=== PATIENT | male | born 1965 | race Caucasian/White ===

== ENCOUNTER 2020-04-30 14:28 | Emergency (ER) | payer OTHER ==
[~2020-04-30 14:28] MED LIST: Sodium Chloride 0.9% 1,000 ML BAG ONE
[2020-04-30 15:31] LABS: #Eosinphils 0.1 thou/uL (0.0-0.7); #Lymphocytes 0.7 thou/uL (1.20-3.40); #Monocytes 0.4 thou/uL (0.11-0.59); #Neutrophils 3.9 thou/uL (1.40-6.50); %Basophils 0.4 % (0.0-1.0); %Eosinophils 1.4 % (0.0-10.0); %Monocytes 7.7 % (0.0-10.0); %Neutrophils 76.6 % (42.0-75.0); Hemoglobin 14.1 g/dL (14.0-18.0); Mean Corpuscular HGB CONC 33.6 g/dL (32.0-36.0); Mean Corpuscular Hemoglobin 28.4 pg (27.0-31.0); Mean Corpuscular Volume 84.6 fL (78.0-98.0); Mean Platelet Volume 6.1 fL (7.4-10.4); Platelet Count 297 thou/uL (130-400); RBC Distribution Width 11.7 % (11.5-14.5); Red Blood Cell (RBC) Count 4.95 mill/uL (4.70-6.10); White Blood Cell (WBC) Count 5.1 thou/uL (4.8-10.8)
[2020-04-30 15:36] LABS: PTT 24.5 sec (22.9-36.1)
[2020-04-30 15:37] LABS: D-Dimer Test 0.8 *mcg/mL (0.27-0.43)
[2020-04-30 15:46] LABS: AST (SGOT) 35 U/L (5-34); Albumin 4.2 g/dL (3.5-5.0); Alkaline Phosphatase 56 U/L (40-110); Anion Gap 17 mmol/L (10-20); BUN (Urea Nitrogen) 21 mg/dL (8.4-25.7); Bilirubin, Total 0.6 mg/dL (0.2-1.2); Calc. Creatinine Clearance 0 mL/min (70-130); Calcium 9.2 mg/dL (7.8-10.44); Carbon Dioxide 27 mmol/L (22-29); Chloride 99 mmol/L (98-107); Globulin 2.9 g/dL (2.4-3.5); Glucose 103 mg/dL (70-105); Magnesium 2.4 mg/dL (1.6-2.6); Potassium 4.7 mmol/L (3.5-5.1); Protein, Total 7.1 g/dL (6.0-8.3); Sodium 138 mmol/L (136-145)
--- NOTE | 2020-04-30 15:50 | CT ---
CT PULMONARY ANGIOGRAM WITH IV CONTRAST AND 3D POSTPROCESSIN04/30/20 HISTORY: Shortness of breath, D-dimer 0.71. Possible COVID. FINDINGS: No filling defects are seen in the pulmonary artery vasculature to suggest pulmonary embolism. The th oracic aorta is well opacified without aneurysmal dissection. No pleural or pericardial effusions are seen. Multifocal patchy ground glass opacities are seen bilaterally. No pneumothoraces identified. There are mild degenerative changes in the spine. Upper abdominal tomograms demonstrate changes of fa tty infiltration of the liver. IMPRESSION: 1. No CT evidence of pulmonary embolism. 2. Findings are suspicious for COVID-19 pneumonia. POS: AH
[2020-04-30 15:59] LABS: ALT (SGPT) 43 U/L (8-55)
== END 2020-04-30 19:15 | disposition home or self-care (01) ==
LOC: MADERS 14:28
DX: U07.1 COVID-19 (principal); E78.5 Hyperlipidemia, unspecified; I10 Essential (primary) hypertension; Z79.82 Long term (current) use of aspirin; Z79.899 Other long term (current) drug therapy
CPT/HCPCS: 71275; 80053; 83605; 83735; 83880; 84484; 85025; 85379; 85730; 93005; J7050